=== PATIENT | male | born 2000 | race Caucasian/White ===

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

== ENCOUNTER → 2021-10-20 | Outpatient (CLI) | payer OTHER ==
[2021-10-20 18:54] LABS: African American GFR (CKD) 148.7 (60.0-200.0); BUN/Creat Ratio 14.66 Ratio (12.00-20.00); Blood Urea Nitrogen 11.8 mg/dL (9.0-27.0); Calcium 10.1 mg/dL (8.7-10.3); Carbon Dioxide 23.7 mmol/L (20.0-27.5); Chloride 104 mmol/L (96-109); Glucose 103 mg/dL (70-110); Non-African American GFR(CKD) 128.3 (60.0-200.0); Potassium 4.7 mmol/L (3.5-5.5); Sodium 139 mmol/L (135-145)
[2021-10-20 18:58] LABS: HGB 15.1 g/dL (13.0-17.0); MCH 28.7 pg (27.0-32.0); MCHC 32.8 g/dL (32.0-37.0); MCV 87.5 fL (80.0-97.0); Mean Platelet Volume 8.9 fL (9.5-12.2); Platelet Count 373 X 10*3/uL (140-440); RBC 5.26 X 10*6/uL (4.40-5.60); RDW 11.9 % (11.5-14.5); WBC 4.31 X 10*3/uL (4.50-10.00)
== END | disposition home or self-care (01) ==
LOC: LABWHC1 13:14
DX: E87.6 Hypokalemia (principal); E05.90 Thyrotoxicosis, unspecified without thyrotoxic crisis or storm
CPT/HCPCS: 36415; 80048; 84439; 84443; 85027

== ENCOUNTER → 2022-01-09 | Outpatient (CLI) | payer OTHER ==
--- NOTE | 2022-01-09 11:58 | NM ---
EXAMINATION TYPE: NM thyroid image only DATE OF EXAM: 01/09/2022 COMPARISON: NONE HISTORY: Hyperthyroidism TECHNIQUE: After the intravenous administration of 10.1 mCi Tc 99m Sodium Pertechnetate. FINDINGS: There is diminished uptake involving the lower pole of the right thyroid and lower pole of the left t hyroid. IMPRESSION: 1. Diminished uptake involving bilateral lower pole of the thyroid. Recommend correlation with ultras ound to exclude cold nodules. Otherwise, consider thyroiditis.
--- NOTE | 2022-01-09 13:09 | US ---
EXAMINATION TYPE: US thyroid st tissue head/neck DATE OF EXAM: 01/09/2022 COMPARISON: NONE CLINICAL HISTORY: E05.90 Hyperthyroidism. GLAND SIZE: Right Lobe: 5.7 x 1.8 x 2.3 cm Overall Parenchyma: heterogenous Left Lobe: 4.6 x 2.0 x 2.3 cm Overall Parenchyma: heterogeneous Isthmus Thickness: 0.6 cm NODULES RIGHT: # of nodules measured on right: 0 LEFT: # of nodules measured on left: 0 ISTHMUS: # of nodules measured in the isthmus: 0 Bilateral neck scanned, no evidence of lymphadenopathy. Gland is diffusely heterogeneous without definite nodule seen. IMPRESSION: Thyromegaly with no solid or cystic thyroid nodules seen diffuse heterogeneity can be associated with thyroiditis correlate clinically. 2017 ACR TI-RADS LEVEL: TR-RADS 1 - BENIGN: No FNA *Highest TI-RADS level nodule reported
== END | disposition home or self-care (01) ==
LOC: RADNMMAIN 10:49
PROVIDERS: ATTEND Surgery
DX: E05.90 Thyrotoxicosis, unspecified without thyrotoxic crisis or storm (principal)
CPT/HCPCS: 76536; 78013; A9512

== ENCOUNTER → 2022-02-24 | Outpatient (CLI) | payer OTHER ==
[2022-02-24 18:45] LABS: ALT 49 U/L (10-49); AST 17 U/L (14-35); African American GFR (CKD) 150.8 (60.0-200.0); Albumin 4.4 g/dL (3.8-4.9); Albumin/Globulin Ratio 1.75 (1.60-3.17); Alkaline Phosphatase 78 U/L (41-126); BUN/Creat Ratio 14.93 Ratio (12.00-20.00); Blood Urea Nitrogen 11.6 mg/dL (9.0-27.0); Calcium 9.9 mg/dL (8.7-10.3); Carbon Dioxide 23.8 mmol/L (20.0-27.5); Chloride 105 mmol/L (96-109); Globulin 2.5 g/dL (1.6-3.3); Glucose 97 mg/dL (70-110); Non-African American GFR(CKD) 130.2 (60.0-200.0); Potassium 4.6 mmol/L (3.5-5.5); Sodium 140 mmol/L (135-145)
== END | disposition home or self-care (01) ==
LOC: LABWHC1 11:35
PROVIDERS: ATTEND Internal Medicine Endocrinology, Diabetes & Metabolism
DX: E05.00 Thyrotoxicosis with diffuse goiter without thyrotoxic crisis or storm (principal)
CPT/HCPCS: 36415; 80053; 84439; 84443; 84481

== ENCOUNTER → 2022-04-30 | Outpatient (CLI) | payer OTHER ==
[2022-04-30 23:22] LABS: T4, Free (Free Thyroxine) 0.4 ng/dL (0.800-1.800)
== END | disposition home or self-care (01) ==
LOC: LABWHC1 14:24
PROVIDERS: ATTEND Internal Medicine Endocrinology, Diabetes & Metabolism
DX: E89.0 Postprocedural hypothyroidism (principal)
CPT/HCPCS: 36415; 84439; 84443

== ENCOUNTER → 2022-06-29 | Outpatient (CLI) | payer OTHER | END | disposition home or self-care (01) | LOC: LABWHC1 10:29 | PROVIDERS: ATTEND Internal Medicine Endocrinology, Diabetes & Metabolism | DX: E89.0 Postprocedural hypothyroidism (principal) | CPT/HCPCS: 36415; 84443 ==

== ENCOUNTER → 2022-08-10 | Outpatient (CLI) | payer OTHER | END | disposition home or self-care (01) | LOC: LABWHC1 14:56 | PROVIDERS: ATTEND Internal Medicine Endocrinology, Diabetes & Metabolism | DX: E89.0 Postprocedural hypothyroidism (principal) | CPT/HCPCS: 36415; 84443 ==

== ENCOUNTER → 2022-10-02 | Outpatient (CLI) | payer OTHER | END | disposition home or self-care (01) | LOC: LABWHC1 16:25 | PROVIDERS: ATTEND Internal Medicine Endocrinology, Diabetes & Metabolism | DX: E03.8 Other specified hypothyroidism (principal) | CPT/HCPCS: 36415; 84443 ==

== ENCOUNTER → 2022-12-25 | Outpatient (CLI) | payer OTHER | END | disposition home or self-care (01) | LOC: LABWHC1 13:40 | PROVIDERS: ATTEND Internal Medicine Endocrinology, Diabetes & Metabolism | DX: E03.8 Other specified hypothyroidism (principal) | CPT/HCPCS: 36415; 84443 ==

== ENCOUNTER → 2023-07-09 | Outpatient (CLI) | payer SELFPAY | END | disposition home or self-care (01) | LOC: LABWHC1 15:27 | PROVIDERS: ATTEND Internal Medicine Endocrinology, Diabetes & Metabolism | DX: E03.8 Other specified hypothyroidism (principal) | CPT/HCPCS: 36415; 84443 ==

== ENCOUNTER 2024-10-04 14:41 | Emergency (ER) | payer OTHER ==
[2024-10-04] MEDS: KETOROLAC 15 MG/ML 1 ML VIAL IVP STA (16:22)
[2024-10-04] MEDS: SODIUM CHLORIDE 0.9% 1,000 ML IV STA (16:22)
--- NOTE | 2024-10-04 16:24 | ED ---
General Adult HPI - General Chief complaint: Chest Pain Stated complaint: chest pain Time Seen by Provider: 10/04/24 15:45 Source: patient, RN notes reviewed, old records reviewed Mode of arrival: ambulatory Limitations: no limitations - History of Present Illness Initial comments: Patient is a 24-year-old male who presents emergency department after being sent from urgent care for evaluation of chest pain. Has been present for the last 3 to 4 days. Is getting over upper respiratory infection where he was coughing up sputum. Cough is improved but he still having left-sided chest discomfort. The chest discomfort is worse with some movements as well as deep inspiration as well as palpation. Patient was sent here from urgent care over concern for the benign early repolarization seen on EKG. Patient has no significant past medical history. Presents for further evaluation at this time. - Related Data Previous Rx's Medication Instructions Recorded Propranolol [Inderal] 20 mg PO QID #120 tab 10/15/21 methIMAzole [Tapazole] 20 mg PO TID 14 Days #168 tab 10/15/21 Allergies Allergy/AdvReac Type Severity Reaction Status Date / Time No Known Allergies Allergy Verified 10/04/24 14:47 Review of Systems ROS Statement: Those systems with pertinent positive or pertinent negative responses have been documented in the HPI. Review of Systems: CONST: Denies fever EYES: Denies blurry vision ENT: Endorses nasal congestion C/V: Endorses chest discomfort RESP: Denies shortness of breath GI: Denies abdominal pain : Denies dysuria SKIN: Denies rash. MSK: Denies joint pain. NEURO: Denies headache ROS Other: All systems not noted in ROS Statement are negative. Past Medical History Past Medical History: GERD/Reflux Additional Past Medical History / Comment(s): Absence Seizures. AORTIC BICUSPID VALVE History of Any Multi-Drug Resistant Organisms: None Reported Past Surgical History: No Surgical Hx Reported Additional Past Surgical History / Comment(s): EGD Past Anesthesia/Blood Transfusion Reactions: No Reported Reaction Past Psychological History: No Psychological Hx Reported Smoking Status: Never smoker Past Alcohol Use History: None Reported Past Drug Use History: None Reported - Past Family History Mother Family Medical History: No Reported History Additional Family Medical History / Comment(s): cancer, decreased General Exam - General Exam Comments Initial Comments: General: Appears anxious HEAD: Normal with no signs of head trauma. EYES: PERRLA, EOMI, conjunctiva normal, no discharge. ENT: Hearing grossly intact, normal oropharynx. RESPIRATORY: Clear breath sounds bilaterally. No wheezes, rales, or rhonchi. C/V: Regular rate and rhythm. S1 and S2 auscultated, no edema, peripheral pulses 2+ and intact throughout. Left-sided chest pain is reproducible on palpation of the left pectoral muscle. Also reproduced with passive turning of the torso to the right. ABD: Abd is soft, nontender, nondistended EXT: No obvious deformity. SKIN: No rashes or lesions observed on exposed skin. NEURO: Alert and oriented x 4. Limitations: no limitations Course Vital Signs 10/04/24 10/04/24 10/04/24 14:42 15:47 16:00 Temperature 98.4 F Pulse Rate 134 H 86 110 H Respiratory 18 20 16 Rate Blood Pressure 105/63 130/86 117/77 O2 Sat by Pulse 100 98 Oximetry 10/04/24 17:32 Temperature 98.6 F Pulse Rate 108 H Respiratory 18 Rate Blood Pressure 108/71 O2 Sat by Pulse Oximetry Medical Decision Making - Medical Decision Making Was pt. sent in by a medical professional or institution (, PA, TRANSPORTATION PROJECT MANAGER, urgent care, hospital, or group home...) When possible be specific @ -Sent from urgent care for evaluation for fast heart rate, benign early repolarization on EKG. Did you speak to anyone other than the patient for history (EMS, parent, family, police, friend...)? What history was obtained from this source @ -No Did you review nursing and triage notes (agree or disagree)? Why? @ -I reviewed and agree with nursing and triage notes Were old charts reviewed (outside hosp., previous admission, EMS record, old EKG, old radiological studies, urgent care reports/EKG's, group home records)? Report findings @ -No old charts were reviewed Differential Diagnosis (chest pain, altered mental status, abdominal pain women, abdominal pain men, vaginal bleeding, weakness, fever, dyspnea, syncope, headache, dizziness, GI bleed, back pain, seizure, CVA, palpatations, mental health, musculoskeletal)? @ -Differential Chest Pain: Stable Angina, Unstable Angina, STEMI, NSTEMI Aortic Dissection, Pneumothorax, Musculoskeletal, Esophageal Spasm GERD, Cholecystitis, Pancreatitis, Zoster, this is not meant to be an all-inclusive list. EKG interpreted by me (3pts min.). @ -As above X-rays interpreted by me (1pt min.). @ -Chest x-ray reveals no obvious acute cardiopulmonary process. CT interpreted by me (1pt min.). @ -None done U/S interpreted by me (1pt. min.). @ -None done What testing was considered but not performed or refused? (CT, X-rays, U/S, labs)? Why? @ -None What meds were considered but not given or refused? Why? @ -None Did you discuss the management of the patient with other professionals (professionals i.e. DrEtienne, PA, TRANSPORTATION PROJECT MANAGER, lab, RT, psych nurse, social worker clinical, plate worker, teacher, structural engineering drafting officer, egg caser)? Give summary @ -No Was smoking cessation discussed for >3mins.? @ -No Was critical care preformed (if so, how long)? @ -No Were there social determinants of health that impacted care today? How? (Homelessness, low income, unemployed, alcoholism, drug addiction, transporta tion, low edu. Level, literacy, decrease access to med. care, senior living, rehab)? @ -No Was there de-escalation of care discussed even if they declined (Discuss DNR or withdrawal of care, Hospice)? DNR status @ -No What co-morbidities impacted this encounter? (DM, HTN, Smoking, COPD, CAD, Cancer, CVA, ARF, Chemo, Hep., AIDS, mental health diagnosis, sleep apnea, morbid obesity)? @ -None Was patient admitted / discharged? Hospital course, mention meds given and route, prescriptions, significant lab abnormalities, going to OR and other pertinent info. @ -Patient presents emergency department with tachycardia, URI symptoms. Does seem to be chest wall pain secondary to coughing as he is recovering from upper respiratory infection however we will obtain cardiopulmonary labs. Patient was in agreement this plan. Signs remarkable for tachycardia. Patient does appear anxious. Patient was in agreement this plan. He will be administered IV Toradol, IV fluids. EKG shows benign early repolarization but no other obvious acute process. Repeat EKG redemonstrates this. Patient does have sinus tachycardia. Chest pain reveals no obvious acute cardiopulmonary process. Laboratory studies including D-dimer all within acceptable limits. Troponin undetectable. Patient does have COVID. I discussed results with patient. Patient was given IV fluids for his mild dehydration as evident by slightly elevated creatinine. Discussed that it seems like he has chest wall pain recommended monitoring at home and follow-up with his PCP. He was in agreement this plan. Strict return precautions discussed. I instructed the patient to follow up with their PCP in the next 1-3 days. I explained that the patient should return to the emergency department if they experience any worsening symptoms. Strict return precautions were discussed with the patient. The patient expressed understanding of these instructions. I answered all questions that the patient had. The patient was discharged home in good condition with their prescriptions and follow up information. Undiagnosed new problem with uncertain prognosis? @ -No Drug Therapy requiring intensive monitoring for toxicity (Heparin, Nitro, Ins ulin, Cardizem)? @ -No Were any procedures done? @ -No Diagnosis/symptom? @ -COVID-19 infection, chest wall pain Acute, or Chronic, or Acute on Chronic? @ -Acute Uncomplicated (without systemic symptoms) or Complicated (systemic symptoms)? @ -Uncomplicated Side effects of treatment? @ -None Exacerbation, Progression, or Severe Exacerbation] @ -No Poses a threat to life or bodily function? @ -Unlikely at this time - Lab Data Result diagrams: 10/04/24 16:13 10/04/24 16:13 Lab Results 10/04/24 10/04/24 10/04/24 Range/Units 16:13 16:13 16:13 WBC 6.8 (3.8-10.6) k/uL RBC 4.12 L (4.30-5.90) m/uL Hgb 13.0 (13.0-17.5) gm/dL Hct 39.6 (39.0-53.0) % MCV 96.2 (80.0-100.0) fL MCH 31.6 (25.0-35.0) pg MCHC 32.8 (31.0-37.0) g/dL RDW 14.2 (11.5-15.5) % Plt Count 280 (150-450) k/uL MPV 6.8 Neutrophils % 75 % Lymphocytes % 18 % Monocytes % 5 % Eosinophils % 1 % Basophils % 1 % Neutrophils # 5.0 (1.3-7.7) k/uL Lymphocytes # 1.2 (1.0-4.8) k/uL Monocytes # 0.3 (0-1.0) k/uL Eosinophils # 0.0 (0-0.7) k/uL Basophils # 0.0 (0-0.2) k/uL PT 11.1 (10.0-12.5) sec INR 1.0 (<1.2) APTT 25.2 (22.0-30.0) sec D-Dimer 0.21 (<0.60) mg/L FEU Sodium 139 (137-145) mmol/L Potassium 4.8 (3.5-5.1) mmol/L Chloride 107 (98-107) mmol/L Carbon Dioxide 23 (22-30) mmol/L Anion Gap 9 mmol/L BUN 21 H (9-20) mg/dL Creatinine 1.36 H (0.66-1.25) mg/dL Est GFR (CKD-EPI)AfAm 84 (>60 ml/min/1.73 sqM) Est GFR (CKD-EPI)NonAf 73 (>60 ml/min/1.73 sqM) Glucose 111 H (74-99) mg/dL Calcium 9.4 (8.4-10.2) mg/dL Magnesium 2.3 (1.6-2.3) mg/dL Total Bilirubin 0.7 (0.2-1.3) mg/dL AST 51 (17-59) U/L ALT 42 (4-49) U/L Alkaline Phosphatase 25 L (38-126) U/L Troponin I (0.000-0.034) ng/mL Total Protein 7.5 (6.3-8.2) g/dL Albumin 4.7 (3.5-5.0) g/dL Influenza Type A (PCR) (Not Detectd) Influenza Type B (PCR) (Not Detectd) RSV (PCR) (Not Detectd) SARS-CoV-2 (PCR) (Not Detectd) 10/04/24 10/04/24 Range/Units 16:13 16:13 WBC (3.8-10.6) k/uL RBC (4.30-5.90) m/uL Hgb (13.0-17.5) gm/dL Hct (39.0-53.0) % MCV (80.0-100.0) fL MCH (25.0-35.0) pg MCHC (31.0-37.0) g/dL RDW (11.5-15.5) % Plt Count (150-450) k/uL MPV Neutrophils % % Lymphocytes % % Monocytes % % Eosinophils % % Basophils % % Neutrophils # (1.3-7.7) k/uL Lymphocytes # (1.0-4.8) k/uL Monocytes # (0-1.0) k/uL Eosinophils # (0-0.7) k/uL Basophils # (0-0.2) k/uL PT (10.0-12.5) sec INR (<1.2) APTT (22.0-30.0) sec D-Dimer (<0.60) mg/L FEU Sodium (137-145) mmol/L Potassium (3.5-5.1) mmol/L Chloride (98-107) mmol/L Carbon Dioxide (22-30) mmol/L Anion Gap mmol/L BUN (9-20) mg/dL Creatinine (0.66-1.25) mg/dL Est GFR (CKD-EPI)AfAm (>60 ml/min/1.73 sqM) Est GFR (CKD-EPI)NonAf (>60 ml/min/1.73 sqM) Glucose (74-99) mg/dL Calcium (8.4-10.2) mg/dL Magnesium (1.6-2.3) mg/dL Total Bilirubin (0.2-1.3) mg/dL AST (17-59) U/L ALT (4-49) U/L Alkaline Phosphatase (38-126) U/L Troponin I <0.012 (0.000-0.034) ng/mL Total Protein (6.3-8.2) g/dL Albumin (3.5-5.0) g/dL Influenza Type A (PCR) Not Detected (Not Detectd) Influenza Type B (PCR) Not Detected (Not Detectd) RSV (PCR) Not Detected (Not Detectd) SARS-CoV-2 (PCR) Detected A (Not Detectd) - EKG Data -: EKG Interpreted by Me EKG Comments: 12-lead Electrocardiogram Interpretation Note EKG was reviewed and interpreted by myself. 12-lead ECG performed at 1450 is interpreted by me as revealing sinus tachycardia at a rate of 118 beats per minute. [place] is normal. MN interval is 116 ms, QRS durations 102 ms, QTc is 421 ms.. There were no ST or T wave abnormalities to suggest myocardial ischemia or injury. R wave progression across the precordium was delayed. By my interpretation this EKG is non-diagnostic for acute ischemia. Patient does have benign early repolarization present in the precordial leads. 12-lead Electrocardiogram Interpretation Note EKG was reviewed and interpreted by myself. 12-lead ECG performed at 1616 is interpreted by me as revealing sinus tachycardia at a rate of 114 beats per minute. [place] is normal. MN interval is 161 ms, QRS duration is 98 ms, QTc is 417 ms.. There were no ST or T wave abnormalities to suggest myocardial ischemia or injury. R wave progression across the precordium was delayed. By my interpretation this EKG is non-diagnostic for acute ischemia. Benign early repolarization is present still. Unchanged from previous EKG. Disposition Clinical Impression: COVID-19 virus infection, Chest wall pain Disposition: HOME SELF-CARE Condition: Good Instructions (If sedation given, give patient instructions): Chest Wall Pain (ED), COVID-19 (Coronavirus Disease 2019) (ED) Additional Instructions: Follow-up with your PCP in the next 1 to 3 days. Return to the emergency department if any worsening symptoms. He tested positive for COVID-19. Also have chest wall pain. Workup today in the emergency department unremarkable except for the COVID-19 positive test. Continue to monitor symptoms and return to the ER if any worsening symptoms. Is patient prescribed a controlled substance at d/c from ED?: No Referrals: None,Stated [Primary Care Provider] - 1-2 days Forms: Area PCPs Time of Disposition: 17:20
[2024-10-04 16:34] LABS: Basophils % (A) 1 %; Eosinophils % (A) 1 %; HCT 39.6 % (39.0-53.0); Lymphocytes # (A) 1.2 k/uL (1.0-4.8); Lymphocytes % (A) 18 %; MCH 31.6 pg (25.0-35.0); MCHC 32.8 g/dL (31.0-37.0); MCV 96.2 fL (80.0-100.0); Mean Platelet Volume 6.8; Monocytes # (A) 0.3 k/uL (0-1.0); Monocytes % (A) 5 %; Neutrophils % (A) 75 %; Platelet Count 280 k/uL (150-450); RBC 4.12 m/uL (4.30-5.90); RDW 14.2 % (11.5-15.5); WBC 6.8 k/uL (3.8-10.6)
[2024-10-04 16:41] LABS: ALT 42 U/L (4-49); AST 51 U/L (17-59); African American GFR (CKD) 84 (>60 ml/min/1.73 sqM); Albumin 4.7 g/dL (3.5-5.0); Alkaline Phosphatase 25 U/L (38-126); Anion Gap 9 mmol/L; Blood Urea Nitrogen 21 mg/dL (9-20); Calcium 9.4 mg/dL (8.4-10.2); Carbon Dioxide 23 mmol/L (22-30); Chloride 107 mmol/L (98-107); Glucose 111 mg/dL (74-99); Magnesium 2.3 mg/dL (1.6-2.3); Non-African American GFR(CKD) 73 (>60 ml/min/1.73 sqM); Potassium 4.8 mmol/L (3.5-5.1); Sodium 139 mmol/L (137-145); Total Bilirubin 0.7 mg/dL (0.2-1.3); Total Protein 7.5 g/dL (6.3-8.2)
--- NOTE | 2024-10-04 16:41 | XR ---
EXAMINATION TYPE: XR chest 2V DATE OF EXAM: 10/04/2024 4:32 PM COMPARISON: 10/12/2021 CLINICAL INDICATION: Male, 24 years old with history of Chest Pain; [facility] TECHNIQUE: XR chest 2V Frontal and lateral views of the chest. FINDINGS: Lungs/Pleura: There is no evidence of pleural effusion, focal consolidation, or pneumothorax. Pulmonary vascularity: Unremarkable. Heart/mediastinum: Cardiomediastinal silhouette is prominent in size. Musculoskeletal: No acute osseous pathology. Other findings: None Lines/Tubes: IMPRESSION: No acute cardiopulmonary disease/process. [facility] Rosario, , 10/04/2024 4:39 PM
[2024-10-04 16:48] LABS: Partial Thromboplastin Time 25.2 sec (22.0-30.0); Prothrombin Time 11.1 sec (10.0-12.5)
[2024-10-04 17:09] LABS: Influenza A Not Detected (Not Detectd); Influenza B Not Detected (Not Detectd); RSV Not Detected (Not Detectd)
[2024-10-04 17:34] VITALS: BP 108/71; PULSE 108; RESP 18; TEMP 98.6
== END 2024-10-04 17:32 | disposition home or self-care (01) ==
LOC: EC 14:41
DX: U07.1 COVID-19 (principal)
CPT/HCPCS: 99285; 96374; 96361; 93005; 85379; 80053; 83735; 84484; 85025; 85610; 85730; 87636; 71046; J1885

== ENCOUNTER → 2024-12-20 | Outpatient (CLI) | payer OTHER ==
[2024-12-20 18:12] LABS: Basophils # (A) 0.05 X 10*3/uL (0.00-0.10); Basophils % (A) 1.3 %; Eosinophils # (A) 0.12 X 10*3/uL (0.04-0.35); Eosinophils % (A) 3.1 %; HCT 43.1 % (39.6-50.0); HGB 13.7 g/dL (13.0-17.0); Immature Grans, Automated 0 %; Lymphocytes # (A) 1.38 X 10*3/uL (0.90-5.00); Lymphocytes % (A) 35.6 %; MCH 30.2 pg (27.0-32.0); MCHC 31.8 g/dL (32.0-37.0); MCV 95.1 FL (80.0-97.0); Mean Platelet Volume 10.5 FL (9.5-12.2); Monocytes # (A) 0.17 X 10*3/uL (0.20-1.00); Monocytes % (A) 4.4 %; NRBC Per 100 WBC 0 X 10*3/uL (0.00-0.01); Neutrophils # (A) 2.16 X 10*3/uL (1.80-7.70); Neutrophils % (A) 55.6 %; Platelet Count 223 X 10*3/uL (140-440); RBC 4.53 X 10*6/uL (4.40-5.60); RDW 14.4 % (11.5-14.5); WBC 3.88 X 10*3/uL (4.50-10.00)
[2024-12-20 18:42] LABS: Hepatitis B Core IgM Nonreactive (Nonreactive); Hepatitis B Surface Antigen Nonreactive (Nonreactive); Hepatitis C IgG Antibody Nonreactive (Nonreactive); Thyroid Peroxidase Antibodies 24.9 U/mL (0.0-33.0)
[2024-12-20 18:53] LABS: % Iron Saturation 9.68 (15.00-50.00); Chloride 109 mmol/L (96-109); Chol/HDL Ratio 3.82 Ratio; Creatine Kinase 78 U/L (35-257); Glucose 103 mg/dL (70-110); Iron 46 UG/DL (65-175); LDL Cholesterol,Calculated 90.4 mg/dL (0.0-131.0); Potassium 4.2 mmol/L (3.5-5.5); Rheumatoid Factor, Qnt <15 IU/mL (0-15); Sodium 143 mmol/L (135-145); Total Iron Binding Capacity 475 UG/DL (228-460); VLDL Calculation 14.36 mg/dL (5.00-40.00)
[2024-12-20 18:54] LABS: ALT 33 U/L (10-49); AST 21 U/L (14-35); Albumin 4.3 g/dL (3.8-4.9); Albumin/Globulin Ratio 1.95 Ratio (1.60-3.17); Alkaline Phosphatase 46 U/L (41-126); Calcium 9.3 mg/dL (8.7-10.3); Ferritin 38.6 ng/mL (22.0-322.0); Globulin 2.2 g/dL (1.6-3.3); Total Protein 6.5 g/dL (6.2-8.2)
[2024-12-20 19:02] LABS: Ceruloplasmin 30.9 mg/dL (20.0-60.0)
[2024-12-20 19:20] LABS: Erythrocyte Sedimentation Rate 4 mm/Hr (0-15)
[2024-12-20 22:26] LABS: Cyclic Citrull Pep IgG Unit <1.5 U/mL (<=3.9); Cyclic Citrullinated Pep IgG Negative
[2024-12-21 12:20] LABS: Liver/Kidney Microsome Antibod 1.8 UNITS (<=20)
== END | disposition home or self-care (01) ==
LOC: LABWHC1 12:50
PROVIDERS: ATTEND Internal Medicine
DX: E03.9 Hypothyroidism, unspecified (principal); N17.9 Acute kidney failure, unspecified; U07.1 COVID-19; R79.89 Other specified abnormal findings of blood chemistry
CPT/HCPCS: 36415; 80053; 80061; 80074; 82105; 82306; 82390; 82550; 82607; 82728; 82746; 83036; 83516; 83540; 83550; 84439; 84443; 84481; 84482; 85025; 85652; 86038; 86200; 86376; 86431; 86800

== ENCOUNTER 2025-01-02 14:26 | Emergency (ER) | payer OTHER ==
--- NOTE | 2025-01-02 15:11 | ED ---
Abdominal Pain HPI - General Source: patient, RN notes reviewed Mode of arrival: ambulatory Limitations: no limitations - History of Present Illness MD Complaint: abdominal pain, flank pain Onset/Timin -: days(s) Location: diffuse Radiation: L flank, R flank Migration to: no migration Severity scale (1-10): 3 Quality: other (Pressure) Consistency: constant Associated Symptoms: vomiting, diarrhea, chills <Porter Le - Last Filed: 01/02/25 19:37> <Merline Gupta - Last Filed: 01/03/25 12:54> - General Chief Complaint: Abdominal Pain Stated Complaint: Abd Pain/Vomitting Time Seen by Provider: 01/02/25 14:43 - History of Present Illness Initial Comments: This is a 24-year-old male with history of of thyroidectomy and STACY presenting f or dental pain (11/27) x 2 weeks. Patient describes pain as pressure that has become constant over the past week with associated vomiting and some diarrhea. Endorses associated back pressure in morning that resolves during the day. Also endorses chills and appearing pale for the past several months. Denies [id number] medication use. Patient states he had a CT scan scheduled for this afternoon but came to the ER instead since he was unable to handle the abdominal pressure any longer. Denies fever, chest pain, dyspnea, hematemesis, constipation, hematochezia, melena, urinary symptoms, hematuria. (Porter eL) - Related Data Home Medications Medication Instructions Recorded Confirmed Levothyroxine Sodium [Synthroid] 150 mcg PO AC-BRKFST 01/02/25 01/02/25 Allergies Allergy/AdvReac Type Severity Reaction Status Date / Time No Known Allergies Allergy Verified 01/02/25 17:42 Review of Systems ROS Other: All systems not noted in ROS Statement are negative. <Porter Le - Last Filed: 01/02/25 19:37> ROS Other: All systems not noted in ROS Statement are negative. <Merline Gupta - Last Filed: 01/03/25 12:54> ROS Statement: Those systems with pertinent positive or pertinent negative responses have been documented in the HPI. Past Medical History Past Medical History: GERD/Reflux Additional Past Medical History / Comment(s): Absence Seizures. AORTIC BICUSPID VALVE History of Any Multi-Drug Resistant Organisms: None Reported Past Surgical History: No Surgical Hx Reported Additional Past Surgical History / Comment(s): EGD Past Anesthesia/Blood Transfusion Reactions: No Reported Reaction Past Psychological History: No Psychological Hx Reported Smoking Status: Never smoker Past Alcohol Use History: None Reported Past Drug Use History: None Reported - Past Family History Mother Family Medical History: No Reported History Additional Family Medical History / Comment(s): cancer, decreased <Porter Le - Last Filed: 01/02/25 19:37> General Exam Limitations: no limitations General appearance: alert, in no apparent distress, other (Patient appears pale/ill) Head exam: Present: atraumatic, normocephalic, normal inspection Eye exam: Present: normal appearance, PERRL, EOMI. Absent: scleral icterus, conjunctival injection, periorbital swelling ENT exam: Present: normal exam, mucous membranes moist Neck exam: Present: normal inspection. Absent: tenderness, meningismus, lymphadenopathy Respiratory exam: Present: normal lung sounds bilaterally. Absent: respiratory distress, wheezes, rales, rhonchi, stridor, accessory muscle use, decreased breath sounds, prolonged expiratory Cardiovascular Exam: Present: regular rate, normal rhythm, normal heart sounds. Absent: systolic murmur, diastolic murmur, rubs, gallop, clicks GI/Abdominal exam: Present: soft, tenderness (Positive diffuse tenderness and tympanic tenderness, especially in bilateral flanks), guarding (Voluntary guarding throughout), normal bowel sounds. Absent: distended, rebound, rigid, mass Extremities exam: Present: normal inspection, full ROM, normal capillary refill. Absent: tenderness, pedal edema, joint swelling, calf tenderness Back exam: Present: normal inspection. Absent: CVA tenderness (R), CVA tenderness (L) Neurological exam: Present: alert, oriented X3, CN II-XII intact Psychiatric exam: Present: normal affect, normal mood Skin exam: Present: warm, dry, intact, pallor. Absent: rash <ReyPorter - Last Filed: 01/02/25 19:37> Course Vital Signs 01/02/25 01/02/25 01/02/25 14:30 17:44 18:22 Temperature 97.3 F L Pulse Rate 65 102 H 112 H Respiratory 22 16 18 Rate Blood Pressure 102/73 112/78 119/87 O2 Sat by Pulse 98 100 100 Oximetry 01/02/25 01/02/25 18:38 22:13 Temperature 98.4 F Pulse Rate 97 91 Respiratory 16 18 Rate Blood Pressure 119/85 121/91 O2 Sat by Pulse 98 98 Oximetry Medical Decision Making - Lab Data Result diagrams: 01/02/25 15:32 01/02/25 15:32 <Porter Le - Last Filed: 01/02/25 19:37> - Lab Data Result diagrams: 01/02/25 15:32 01/02/25 15:32 <Merline Gupta - Last Filed: 01/03/25 12:54> - Medical Decision Making Was pt. sent in by a medical professional or institution (, PA, DEPUTY JUVENILE OFFICER, urgent care, hospital, or care home...) When possible be specific @ -[No] Did you speak to anyone other than the patient for history (EMS, parent, family, police, friend...)? What history was obtained from this source @ -[No] Did you review nursing and triage notes (agree or disagree)? Why? @ -[I reviewed and agree with nursing and triage notes] Were old charts reviewed (outside hosp., previous admission, EMS record, old EKG, old radiological studies, urgent care reports/EKG's, care home records)? Report findings @ -[No old charts were reviewed] Differential Diagnosis (chest pain, altered mental status, abdominal pain women, abdominal pain men, vaginal bleeding, weakness, fever, dyspnea, syncope, headache, dizziness, GI bleed, back pain, seizure, CVA, palpatations, mental health, musculoskeletal)? @ -Differential Abdominal Pain Men: Appendicitis, cholecystitis, diverticulosis, ischemic bowel, pancreatitis, hepatitis, UTI, gastroenteritis, AAA, incarcerated hernia, bowel obstruction, constipation, inflammatory bowel, hepatitis, peptic ulcer disease, splenic infarction, perforated viscus, testicular torsion, this is not meant to be an all-inclusive list EKG interpreted by me (3pts min.). @ -Sinus tachycardia without ST deviation or T wave inversion. Ventricular rate 104 bpm, BLANCA 185 ms, QRS 97 ms, QTc 431 ms. X-rays interpreted by me (1pt min.). @ -[None done] CT interpreted by me (1pt min.). @ -Abdomen/pelvic CT shows hepatic periportal edema and nonopacification of hepatic veins along with diffuse abdominal ascites with radiologist suggesting suspicions for Budd-Chiari syndrome. Cardiomegaly, small bilateral pleural eff usions as well as small/moderate pericardial effusion noted. U/S interpreted by me (1pt. min.). @ -[None done] What testing was considered but not performed or refused? (CT, X-rays, U/S, l abs)? Why? @ -[None] What meds were considered but not given or refused? Why? @ -[None] Did you discuss the management of the patient with other professionals (professionals i.e. , PA, DEPUTY JUVENILE OFFICER, lab, RT, psych nurse, director social welfare, city magistrate, teacher, hospital security officer, keycase assembler)? Give summary @ -Spoke to Dr. Julio from [facility] who advised patient be transported to [facility] for definitive care. Was smoking cessation discussed for >3mins.? @ -[No] Was critical care preformed (if so, how long)? @ -[No] Were there social determinants of health that impacted care today? How? (Homelessness, low income, unemployed, alcoholism, drug addiction, transportation, low edu. Level, literacy, decrease access to med. care, group home, rehab)? @ -[No] Was there de-escalation of care discussed even if they declined (Discuss DNR or withdrawal of care, Hospice)? DNR status @ -[No] What co-morbidities impacted this encounter? (DM, HTN, Smoking, COPD, CAD, Cancer, CVA, ARF, Chemo, Hep., AIDS, mental health diagnosis, sleep apnea, morbid obesity)? @ -[None] Was patient admitted / discharged? Hospital course, mention meds given and route, prescriptions, significant lab abnormalities, going to OR and other pertinent info. @ -Lab work including lactic acid and lipase largely unremarkable. UA and Cepheid test negative. Abdomen/pelvic CT shows hepatic periportal edema and nonopacification of hepatic veins along with diffuse abdominal ascites with radiologist suggesting suspicions for Budd-Chiari syndrome. Cardiomegaly, small bilateral pleural effusions as well as small/moderate pericardial effusion noted. Patient initially provided IV normal saline, Pepcid, Protonix and p.o. Tylenol with minimal relief of pain. Then provided IV Toradol and Dilaudid for ongoing pain management. Discussed patient with Dr. Gupta who advised ER to ER transport to [facility] due to gastroenterology unavailability at [facility] at this time.. Spoke to Dr. Julio who recommended [facility]. Discussed this with Dr. Gupta who advised [facility] due to normally extended wait for [facility]. Undiagnosed new problem with uncertain prognosis? @ -[No] Drug Therapy requiring intensive monitoring for toxicity (Heparin, Nitro, Insulin, Cardizem)? @ -[No] Were any procedures done? @ -[No] Diagnosis/symptom? @ -Budd-Chiari syndrome, ascites, pleural/pericardial effusion Acute, or Chronic, or Acute on Chronic? @ -Acute Uncomplicated (without systemic symptoms) or Complicated (systemic symptoms)? @ -Complicated Side effects of treatment? @ -[No] Exacerbation, Progression, or Severe Exacerbation? @ -[No] Poses a threat to life or bodily function? How? (Chest pain, USA, OR, pneumonia, PE, COPD, DKA, ARF, appy, cholecystitis, CVA, Diverticulitis, Homicidal, Suicidal, threat to staff... and all critical care pts) @ -Pericardial effusion, cardiac arrest (Porter Le) Patient was signed out to myself pending transfer. Of note, as noted above, [facility] physician recommended transfer to [facility] however since the majority of our patients that are transferred there board in our ER awaiting bed availability for days at a time., I recommended transfer to one of the locations as above, as I did not feel it would be safe or in the patient's best interest to board in our ED for that period of time, awaiting definitive care. On my assessment patient is resting comfortably no acute distress. He does have generalized pallor. Abdomen is distended. Lungs are clear to auscultation bilaterally. Heart rates been 90-101 bpm. Blood pressure is stable. Discussed with him plan for impending transfer. He is agreeable plan of care. Case was discussed with Dr. Arriaga, [facility] who kindly accepted the patient for transfer. Did recommend and request CT PE study prior to transfer. This was added. Troponin undetectable, BNP~15,000. CT showed no evidence of PE, radiologist read as no evidence of PE, significant cardiomegaly and small to moderate pericardial effusion, consider echo, small right and trace left pleural effusions with possible adjacent lower lobe compressive atelectasis/and/or/developing infectious etiology. I personally reviewed CTA and agree with radiologist interpretation. Patient was transferred to [facility] in stable condition. EKG interpretation: Sinus tachycardia rate 104 bpm intervals within acceptable limits, no clear ST elevations or depressions, somewhat low voltage EKG, no arrythmias (Merline Gupta) - Lab Data Lab Results 01/02/25 01/02/25 01/02/25 Range/Units 15:03 15:06 15:32 WBC 3.87 L (4.50-10.00) 10*3/uL RBC 4.35 L (4.40-5.60) 10*6/uL Hgb 13.4 (13.0-17.0) g/dL Hct 39.2 L (39.6-50.0) % MCV 90.1 (80.0-97.0) fL MCH 30.8 (27.0-32.0) pg MCHC 34.2 (32.0-37.0) g/dL Plt Count 193 (140-440) 10*3/uL MPV 9.7 (9.5-12.2) fL Immature Gran % (Auto) 0.3 % Neutrophils % 60.9 % Lymphocytes % 32.0 % Monocytes % 3.9 % Eosinophils % 1.3 % Basophils % 1.6 % Immature Gran # 0.01 (0.00-0.04) 10*3/uL Neutrophils # 2.36 (1.80-7.70) 10*3/uL Lymphocytes # 1.24 (0.90-5.00) 10*3/uL Monocytes # 0.15 L (0.20-1.00) 10*3/uL Eosinophils # 0.05 (0.04-0.35) 10*3/uL Basophils # 0.06 (0.00-0.10) 10*3/uL PT (10.0-12.5) sec INR (<1.2) APTT (22.0-30.0) sec D-Dimer (<0.60) mg/L FEU Sodium (137-145) mmol/L Potassium (3.5-5.1) mmol/L Chloride (98-107) mmol/L Carbon Dioxide (22-30) mmol/L Anion Gap mmol/L BUN (9-20) mg/dL Creatinine (0.66-1.25) mg/dL Est GFR (CKD-EPI)AfAm (>60 ml/min/1.73 sqM) Est GFR (CKD-EPI)NonAf (>60 ml/min/1.73 sqM) Glucose (74-99) mg/dL Plasma Lactic Acid Jean-Pierre (0.7-2.0) mmol/L Calcium (8.4-10.2) mg/dL Total Bilirubin (0.2-1.3) mg/dL AST (17-59) U/L ALT (4-49) U/L Alkaline Phosphatase (38-126) U/L Troponin I (0.000-0.034) ng/mL NT-Pro-B Natriuret Pep pg/mL Total Protein (6.3-8.2) g/dL Albumin (3.5-5.0) g/dL Lipase (23-300) U/L Urine Color Yellow Urine Appearance Clear (Clear) Urine pH 5.5 (5.0-8.0) Ur Specific Orient 1.022 (1.001-1.035) Urine Protein Negative (Negative) Urine Glucose (UA) Negative (Negative) Urine Ketones Negative (Negative) Urine Blood Negative (Negative) Urine Nitrite Negative (Negative) Urine Bilirubin Negative (Negative) Urine Urobilinogen <2.0 (<2.0) mg/dL Ur Leukocyte Esterase Negative (Negative) Influenza Type A (PCR) Not Detected (Not Detectd) Influenza Type B (PCR) Not Detected (Not Detectd) RSV (PCR) Not Detected (Not Detectd) SARS-CoV-2 (PCR) Not Detected (Not Detectd) 01/02/25 01/02/25 01/02/25 Range/Units 15:32 15:32 19:41 WBC (4.50-10.00) 10*3/uL RBC (4.40-5.60) 10*6/uL Hgb (13.0-17.0) g/dL Hct (39.6-50.0) % MCV (80.0-97.0) fL MCH (27.0-32.0) pg MCHC (32.0-37.0) g/dL Plt Count (140-440) 10*3/uL MPV (9.5-12.2) fL Immature Gran % (Auto) % Neutrophils % % Lymphocytes % % Monocytes % % Eosinophils % % Basophils % % Immature Gran # (0.00-0.04) 10*3/uL Neutrophils # (1.80-7.70) 10*3/uL Lymphocytes # (0.90-5.00) 10*3/uL Monocytes # (0.20-1.00) 10*3/uL Eosinophils # (0.04-0.35) 10*3/uL Basophils # (0.00-0.10) 10*3/uL PT 13.9 H (10.0-12.5) sec INR 1.3 H (<1.2) APTT 23.3 (22.0-30.0) sec D-Dimer 3.95 H (<0.60) mg/L FEU Sodium 137 (137-145) mmol/L Potassium 4.2 (3.5-5.1) mmol/L Chloride 108 H (98-107) mmol/L Carbon Dioxide 17 L (22-30) mmol/L Anion Gap 12 mmol/L BUN 11 (9-20) mg/dL Creatinine 1.20 (0.66-1.25) mg/dL Est GFR (CKD-EPI)AfAm >90 (>60 ml/min/1.73 sqM) Est GFR (CKD-EPI)NonAf 85 (>60 ml/min/1.73 sqM) Glucose 105 H (74-99) mg/dL Plasma Lactic Acid Jean-Pierre 1.8 (0.7-2.0) mmol/L Calcium 9.6 (8.4-10.2) mg/dL Total Bilirubin 1.2 (0.2-1.3) mg/dL AST 18 (17-59) U/L ALT 17 (4-49) U/L Alkaline Phosphatase 37 L (38-126) U/L Troponin I (0.000-0.034) ng/mL NT-Pro-B Natriuret Pep pg/mL Total Protein 6.1 L (6.3-8.2) g/dL Albumin 3.6 (3.5-5.0) g/dL Lipase 108 (23-300) U/L Urine Color Urine Appearance (Clear) Urine pH (5.0-8.0) Ur Specific Orient (1.001-1.035) Urine Protein (Negative) Urine Glucose (UA) (Negative) Urine Ketones (Negative) Urine Blood (Negative) Urine Nitrite (Negative) Urine Bilirubin (Negative) Urine Urobilinogen (<2.0) mg/dL Ur Leukocyte Esterase (Negative) Influenza Type A (PCR) (Not Detectd) Influenza Type B (PCR) (Not Detectd) RSV (PCR) (Not Detectd) SARS-CoV-2 (PCR) (Not Detectd) 01/02/25 01/02/25 Range/Units 19:41 19:41 WBC (4.50-10.00) 10*3/uL RBC (4.40-5.60) 10*6/uL Hgb (13.0-17.0) g/dL Hct (39.6-50.0) % MCV (80.0-97.0) fL MCH (27.0-32.0) pg MCHC (32.0-37.0) g/dL Plt Count (140-440) 10*3/uL MPV (9.5-12.2) fL Immature Gran % (Auto) % Neutrophils % % Lymphocytes % % Monocytes % % Eosinophils % % Basophils % % Immature Gran # (0.00-0.04) 10*3/uL Neutrophils # (1.80-7.70) 10*3/uL Lymphocytes # (0.90-5.00) 10*3/uL Monocytes # (0.20-1.00) 10*3/uL Eosinophils # (0.04-0.35) 10*3/uL Basophils # (0.00-0.10) 10*3/uL PT (10.0-12.5) sec INR (<1.2) APTT (22.0-30.0) sec D-Dimer (<0.60) mg/L FEU Sodium (137-145) mmol/L Potassium (3.5-5.1) mmol/L Chloride (98-107) mmol/L Carbon Dioxide (22-30) mmol/L Anion Gap mmol/L BUN (9-20) mg/dL Creatinine (0.66-1.25) mg/dL Est GFR (CKD-EPI)AfAm (>60 ml/min/1.73 sqM) Est GFR (CKD-EPI)NonAf (>60 ml/min/1.73 sqM) Glucose (74-99) mg/dL Plasma Lactic Acid Jean-Pierre (0.7-2.0) mmol/L Calcium (8.4-10.2) mg/dL Total Bilirubin (0.2-1.3) mg/dL AST (17-59) U/L ALT (4-49) U/L Alkaline Phosphatase (38-126) U/L Troponin I <0.012 (0.000-0.034) ng/mL NT-Pro-B Natriuret Pep 37701 pg/mL Total Protein (6.3-8.2) g/dL Albumin (3.5-5.0) g/dL Lipase (23-300) U/L Urine Color Urine Appearance (Clear) Urine pH (5.0-8.0) Ur Specific Orient (1.001-1.035) Urine Protein (Negative) Urine Glucose (UA) (Negative) Urine Ketones (Negative) Urine Blood (Negative) Urine Nitrite (Negative) Urine Bilirubin (Negative) Urine Urobilinogen (<2.0) mg/dL Ur Leukocyte Esterase (Negative) Influenza Type A (PCR) (Not Detectd) Influenza Type B (PCR) (Not Detectd) RSV (PCR) (Not Detectd) SARS-CoV-2 (PCR) (Not Detectd) Disposition Is patient prescribed a controlled substance at d/c from ED?: No Time of Disposition: 18:30 - Out of Hospital Transfer - Req. Specs Out of Hospital Transfer - Requested Specifics: Other Emergency Center <Porter Le - Last Filed: 01/02/25 19:37> <Merline Gupta - Last Filed: 01/03/25 12:54> Clinical Impression: Budd-Chiari syndrome, Ascites, Pleural effusion, Pericardial effusion Disposition: OTHER INSTITUTION NOT DEFINED Condition: Stable Referrals: Anson Rolon MD [REFERRING] - 1-2 days
[2025-01-02 15:36] LABS: Basophils # (A) 0.06 10*3/uL (0.00-0.10); Basophils % (A) 1.6 %; Eosinophils # (A) 0.05 10*3/uL (0.04-0.35); Eosinophils % (A) 1.3 %; HCT 39.2 % (39.6-50.0); HGB 13.4 g/dL (13.0-17.0); Lymphocytes # (A) 1.24 10*3/uL (0.90-5.00); MCH 30.8 pg (27.0-32.0); MCHC 34.2 g/dL (32.0-37.0); MCV 90.1 fL (80.0-97.0); Mean Platelet Volume 9.7 fL (9.5-12.2); Monocytes # (A) 0.15 10*3/uL (0.20-1.00); Monocytes % (A) 3.9 %; Neutrophils # (A) 2.36 10*3/uL (1.80-7.70); Neutrophils % (A) 60.9 %; Platelet Count 193 10*3/uL (140-440); RBC 4.35 10*6/uL (4.40-5.60); RDW 14.8 % (11.5-14.5); WBC 3.87 10*3/uL (4.50-10.00)
[2025-01-02] MEDS: SODIUM CHLORIDE 0.9% 1,000 ML IV STA (15:37)
[2025-01-02] MEDS: PANTOPRAZOLE 40 MG/10 ML VIAL IVP STA (15:38)
[2025-01-02] MEDS: FAMOTIDINE 20 MG/2 ML VIAL IV STA (15:39)
[2025-01-02] MEDS: ACETAMINOPHEN TAB 500 MG TAB PO STA (15:39)
[2025-01-02 15:57] LABS: ALT 17 U/L (4-49); AST 18 U/L (17-59); African American GFR (CKD) >90 (>60 ml/min/1.73 sqM); Albumin 3.6 g/dL (3.5-5.0); Alkaline Phosphatase 37 U/L (38-126); Anion Gap 12 mmol/L; Blood Urea Nitrogen 11 mg/dL (9-20); Calcium 9.6 mg/dL (8.4-10.2); Carbon Dioxide 17 mmol/L (22-30); Chloride 108 mmol/L (98-107); Glucose 105 mg/dL (74-99); Lipase 108 U/L (23-300); Non-African American GFR(CKD) 85 (>60 ml/min/1.73 sqM); Potassium 4.2 mmol/L (3.5-5.1); Sodium 137 mmol/L (137-145); Total Bilirubin 1.2 mg/dL (0.2-1.3); Total Protein 6.1 g/dL (6.3-8.2)
[2025-01-02 17:02] LABS: Influenza A Not Detected (Not Detectd); Influenza B Not Detected (Not Detectd); RSV Not Detected (Not Detectd)
--- NOTE | 2025-01-02 17:15 | CT ---
EXAMINATION TYPE: CT abdomen pelvis w con DATE OF EXAM: 01/02/2025 4:47 PM COMPARISON: None available. CLINICAL INDICATION: Male, 24 years old with history of Diffuse abdominal TTP/pain; Diffuse abdominal pain and tightness. N/V/D. Pale. TECHNIQUE: Axial CT abdomen pelvis w con;Sagittal and coronal reformats were created on a separate w orkstation. Contrast used:100 ml mL of Isovue 300 with IV Contrast, (none if empty) Oral contrast used: without Oral Contrast (none if empty) CT DLP: 1144.7 mGycm, Automated exposure control for dose reduction was used. FINDINGS: LOWER CHEST: Partially visualized cardiomegaly and trace bilateral pleural effusions. Subtle groundgl ass attenuation opacities in the inferior aspect of the right lower lobe which could reflect sequelae of either pulmonary edema or infectious etiology. Small to moderate volume pericardial effusion part ially visualized. ABDOMEN LIVER: Heterogeneous enhancement and mild to moderate periportal edema. Possible mild nodularity of t he external hepatic surface contour. Reflux of contrast into the IVC and hepatic veins is noted on in itial arterial phase, however, on delayed phase imaging the hepatic veins are not opacified (series 6 1 images 13-15). GALLBLADDER AND BILE DUCTS: Nonspecific abnormal thickening/edema without CT evidence of cholelithias is. PANCREAS: Unremarkable. SPLEEN: Unremarkable. ADRENAL GLANDS: Unremarkable. KIDNEYS AND URETERS: No evidence of hydronephrosis or renal calculus. The ureters are unremarkable. PELVIS BLADDER: No evidence for wall thickening or mass given limitations of exam. REPRODUCTIVE: Unremarkable. ABDOMEN & PELVIS STOMACH AND BOWEL: Stomach and duodenum are unremarkable. No evidence of bowel obstruction. PERITONEUM/RETROPERITONEUM: No evidence of pneumoperitoneum. Moderate volume diffuse abdominal ascite s. VASCULATURE: No evidence of aortic aneurysm. MUSCULOSKELETAL: No acute osseous abnormalities LYMPH NODES: No gross evidence for lymphadenopathy. SOFT TISSUE/ABDOMINAL WALL: Bilateral edema/anasarca. IMPRESSION: 1. Heterogeneous hepatic parenchymal enhancement, periportal edema and nonopacification of the hepat ic veins on delayed phase imaging. Additionally, there is moderate diffuse abdominal ascites. Constel lation of findings are suspicious for [place] Chiari syndrome in the appropriate clinical setting. Conges tive hepatopathy in the setting of heart failure would also be a possibility. 2. Cardiomegaly, small bilateral pleural effusions and diffuse body wall edema/anasarca suggesting f luid volume overload. 3. Small to moderate volume pericardial effusion partially visualized. [facility], , 01/02/2025 5:12 PM
[2025-01-02 17:56] LABS: Appearance,Urine Clear (Clear); Bilirubin,Urine Negative (Negative); Blood,Urine Negative (Negative); Color,Urine Yellow; Glucose,Urine (UA) Negative (Negative); Ketones,Urine Negative (Negative); Leukocyte Esterase,Urine Negative (Negative); Nitrite,Urine Negative (Negative); PH, Urine 5.5 (5.0-8.0); Protein,Urine Negative (Negative); Specific Gravity,Urine 1.022 (1.001-1.035); Urobilinogen,Urine <2.0 mg/dL (<2.0)
[2025-01-02] MEDS: KETOROLAC 15 MG/ML 1 ML VIAL IVP STA (18:16)
[2025-01-02] MEDS: HYDROmorphone 1 MG/ML 1 ML SYRINGE IVP STA (18:17)
--- NOTE | 2025-01-02 19:08 | XR ---
EXAMINATION TYPE: XR chest 2V DATE OF EXAM: 01/02/2025 6:40 PM COMPARISON: Previous chest radiograph, most recently dated 10/04/2024. CLINICAL INDICATION: Male, 24 years old with history of Pericardial effusion; [facility] TECHNIQUE: XR chest 2V Frontal and lateral views of the chest. FINDINGS: Lungs/Pleura: Small bilateral pleural effusions with adjacent lower lobe compressive atelectasis. No pneumothorax. Pulmonary vascularity: Mild pulmonary vascular congestion. Heart/mediastinum: Cardiomegaly. Musculoskeletal: No acute osseous pathology. Other findings: None IMPRESSION: Cardiomegaly, pulmonary vascular congestion and small bilateral pleural effusions. [facility], , 01/02/2025 7:05 PM
[2025-01-02 20:29] LABS: INR 1.3 (<1.2); Partial Thromboplastin Time 23.3 sec (22.0-30.0); Prothrombin Time 13.9 sec (10.0-12.5)
--- NOTE | 2025-01-02 21:12 | CT ---
EXAMINATION TYPE: CT chest angio for PE DATE OF EXAM: 01/02/2025 8:54 PM COMPARISON: Chest radiograph 01/02/2025. CLINICAL INDICATION: Male, 24 years old with history of cardiomegaly, budd chiari malformation on CT ab/pe; Cardiomegaly, budd chiari malformation found on prior CT today. TECHNIQUE/CONTRAST: CTA scan of the thorax is performed with IV Contrast, patient injected with 80 ml mL of Isovue 370, M IP images are created and reviewed these are created on a separate workstation.. CT DLP: 367 mGycm, Automated exposure control for dose reduction was used. FINDINGS: Pulmonary Artery: There is no evidence for a filling defect within the pulmonary vasculature to sugge st acute pulmonary embolism. The pulmonary artery is of normal size. Lungs/Pleura: No pneumothorax. Small right and trace left pleural effusions. Groundglass and small no dular opacities in the right lower lobe, possibly affecting infectious etiology Airway: Large airways are patent. Heart: Cardiomegaly and small to moderate volume pericardial effusion. Vasculature: No evidence of aortic aneurysm. Mediastinum: No gross evidence of adenopathy. Musculoskeletal: No acute osseous abnormalities Soft Tissues/lymph nodes: Unremarkable. Lower neck: No significant findings. IMPRESSION: 1. No evidence of acute pulmonary embolism. 2. Significant cardiomegaly and small to moderate volume pericardial effusion. Consider echocardiogr aphy for further evaluation as clinically warranted. 3. Small right and trace left pleural effusions with possible adjacent lower lobe compressive atelec tasis and/or developing infectious etiology. [facility], , 01/02/2025 9:10 PM
[2025-01-02 22:14] VITALS: BP 121/91; PULSE 91; RESP 18; TEMP 98.4
== END 2025-01-02 22:15 | disposition other institution (70) ==
LOC: EC 14:26
DX: I82.0 Budd-Chiari syndrome (principal); J90 Pleural effusion, not elsewhere classified; I31.39 Other pericardial effusion (noninflammatory); R18.8 Other ascites; R00.0 Tachycardia, unspecified
CPT/HCPCS: 36415; 93005; 85379; 83880; 80053; 83605; 83690; 84484; 85025; 85610; 85730; 81003; 87636; 71046; 71275; 74177; 99285; 96374; 96375; 96361; J1171; J1885; Q9967 ×2; J2470; J1308

== ENCOUNTER 2025-03-04 21:22 | Emergency (ER) | payer OTHER ==
[2025-03-04 21:27] VITALS: RESP 18
--- NOTE | 2025-03-04 22:07 | ED ---
Chest Pain HPI - General Chief Complaint: Chest Pain Stated Complaint: Chest pain Time Seen by Provider: 03/04/25 21:34 Source: patient Mode of arrival: ambulatory Limitations: no limitations - History of Present Illness Initial Comments: This patient is a 24-year-old man who presents to have evaluation of right sided chest pain. The patient indicates the right upper chest which is the irene- incisional area for one of his decisions related to LVAD device. The patient states that the pain is currently about a 2-3 out of 10 intensity. It is an aching, constant. Pain sometimes worse with movement. He has not noted relieving factors. Patient states that he took some Tylenol at home but was not feeling much better. In light of not having much improvement he called his LVAD team and he was instructed to be seen in the emergency. The patient relates that he developed heart failure early this year which worsened and ended up requiring LVAD placement in early November. This was performed in [place]. Patient states that he takes Coumadin daily related to the LVAD he is currently having weekly follow-ups with the last one being and he states that he was doing well. MD Complaint: chest pain -: hour(s) Onset: during rest Pain Location: right chest Pain Radiation: none Severity: mild Severity scale (1-10): 3 Quality: aching Consistency: constant Improves With: nothing Worsens With: movement Treatments Prior to Arrival: none - Related Data Home Medications Medication Instructions Recorded Confirmed Levothyroxine Sodium [Synthroid] 150 mcg PO [id number] 01/02/25 01/02/25 Allergies Allergy/AdvReac Type Severity Reaction Status Date / Time No Known Allergies Allergy Verified 03/04/25 21:27 Review of Systems ROS Statement: Those systems with pertinent positive or pertinent negative responses have been documented in the HPI. ROS Other: All systems not noted in ROS Statement are negative. Constitutional: Denies: fever, chills Respiratory: Denies: cough, dyspnea Cardiovascular: Reports: chest pain. Denies: palpitations, orthopnea, edema, syncope Gastrointestinal: Denies: abdominal pain, nausea, vomiting, diarrhea Genitourinary: Denies: dysuria, hematuria Musculoskeletal: Denies: back pain Skin: Denies: rash Neurological: Denies: headache, weakness, numbness EKG Findings - EKG Comments: EKG Findings:: Right ventricular hypertrophy. - EKG Results: EKG: interpreted by SAMINA, sinus rhythm EKG shows: tachycardia (Rate 110 bpm) Past Medical History Past Medical History: GERD/Reflux Additional Past Medical History / Comment(s): Absence Seizures. AORTIC BICUSPID VALVE History of Any Multi-Drug Resistant Organisms: None Reported Past Surgical History: No Surgical Hx Reported Additional Past Surgical History / Comment(s): EGD, LVAD Past Anesthesia/Blood Transfusion Reactions: No Reported Reaction Past Psychological History: No Psychological Hx Reported Smoking Status: Never smoker Past Alcohol Use History: None Reported Past Drug Use History: None Reported - Past Family History Mother Family Medical History: No Reported History Additional Family Medical History / Comment(s): cancer, decreased General Exam Limitations: no limitations General appearance: alert, in no apparent distress Head exam: Present: atraumatic, normocephalic Eye exam: Present: normal appearance. Absent: scleral icterus, conjunctival injection ENT exam: Present: normal oropharynx Neck exam: Present: normal inspection Respiratory exam: Present: normal lung sounds bilaterally, chest wall tenderness. Absent: respiratory distress, wheezes, rales, rhonchi, stridor, accessory muscle use Cardiovascular Exam: Present: tachycardia, systolic murmur, other. Absent: diastolic murmur, rubs, gallop GI/Abdominal exam: Present: soft. Absent: distended, tenderness, guarding, rebound, rigid, mass Extremities exam: Present: normal inspection, normal capillary refill. Absent: pedal edema, calf tenderness Back exam: Present: normal inspection. Absent: CVA tenderness (R), CVA tenderness (L) Neurological exam: Present: alert Skin exam: Present: warm, dry, intact, normal color. Absent: rash Course Vital Signs 03/04/25 03/04/25 03/05/25 21:24 23:56 02:17 Temperature 97.6 F 98.3 F Pulse Rate 128 H 112 H 108 H Respiratory 18 18 18 Rate Blood Pressure 93/54 87/65 94/48 O2 Sat by Pulse 100 99 98 Oximetry - Reevaluation(s) Reevaluation #1: 03/04/25 22:30 I did phone the [facility] transplant center at [phone] and left details of the case with Lolita who was the women's apparel salesperson. She was paging the case out for the physician covering for LVAD's. Reevaluation #2: 03/04/25 22:47 I received a call back from [facility] team, . We reviewed details of the case. I will review the call with the patient. Chest Pain MDM - MDM Patient is a 24-year-old man who presents with right-sided chest pain. He states he also has had some intermittent nausea/upper abdominal discomfort. He currently is not having any symptoms in the abdomen. Patient also has at times had shortness of breath if he walks. The case discussed with the patient's LVAD team. When the results had returned I discussed them with the patient. His CT scan was pending and was taking some time for the read. Patient stated that he was feeling better and he wanted to go home without waiting for the final results. I did discuss that his LVAD team had wanted to offer transfer to the facility in [place] to have further evaluation, but the patient is declining at this time. He states that he will definitely be in contact with the team by phone in the morning, and he does agree to return if the symptoms recur or new symptoms develop. Disposition Clinical Impression: Chest pain Disposition: HOME SELF-CARE Condition: Undetermined Instructions (If sedation given, give patient instructions): Chest Pain (ED) Is patient prescribed a controlled substance at d/c from ED?: No Referrals: Seth Rolon MD [Primary Care Provider] - 1-2 days
[2025-03-04 22:58] LABS: Basophils # (A) 0.05 10*3/uL (0.00-0.10); Basophils % (A) 0.7 %; Eosinophils # (A) 0.38 10*3/uL (0.04-0.35); Eosinophils % (A) 5.6 %; HGB 11.9 g/dL (13.0-17.0); Lymphocytes # (A) 1.79 10*3/uL (0.90-5.00); Lymphocytes % (A) 26.5 %; MCH 28.5 pg (27.0-32.0); MCHC 33.1 g/dL (32.0-37.0); MCV 86.1 fL (80.0-97.0); Mean Platelet Volume 8.3 fL (9.5-12.2); Monocytes # (A) 0.44 10*3/uL (0.20-1.00); Monocytes % (A) 6.5 %; Neutrophils # (A) 4.08 10*3/uL (1.80-7.70); Neutrophils % (A) 60.4 %; Platelet Count 322 10*3/uL (140-440); RBC 4.18 10*6/uL (4.40-5.60); RDW 16.7 % (11.5-14.5); WBC 6.76 10*3/uL (4.50-10.00)
[2025-03-04 23:13] LABS: ALT 27 U/L (4-49); AST 29 U/L (17-59); African American GFR (CKD) >90 (>60 ml/min/1.73 sqM); Albumin 4.6 g/dL (3.5-5.0); Alkaline Phosphatase 77 U/L (38-126); Amylase 56 U/L (30-110); Anion Gap 12 mmol/L; Blood Urea Nitrogen 24 mg/dL (9-20); Calcium 9.8 mg/dL (8.4-10.2); Carbon Dioxide 24 mmol/L (22-30); Chloride 103 mmol/L (98-107); Glucose 111 mg/dL (74-99); Lipase 111 U/L (23-300); Magnesium 1.7 mg/dL (1.6-2.3); Non-African American GFR(CKD) >90 (>60 ml/min/1.73 sqM); Potassium 4.1 mmol/L (3.5-5.1); Sodium 139 mmol/L (137-145); Total Bilirubin 0.7 mg/dL (0.2-1.3); Total Protein 7.8 g/dL (6.3-8.2)
[2025-03-04 23:38] LABS: INR 2.1 (<1.2); Partial Thromboplastin Time 32.8 sec (22.0-30.0); Prothrombin Time 21.3 sec (10.0-12.5)
[2025-03-05 00:09] LABS: Influenza A Not Detected (Not Detectd); Influenza B Not Detected (Not Detectd); RSV Not Detected (Not Detectd)
[2025-03-05 02:18] VITALS: BP 94/48; PULSE 108; TEMP 98.3
--- NOTE | 2025-03-05 03:51 | CT ---
EXAM: CT Angiography Chest, Abdomen and Pelvis Without and With Intravenous Contrast CLINICAL HISTORY: ITS.REASON CT Reason: R chest/RUQ pain, recent LVAD surgery TECHNIQUE: Axial computed tomographic angiography images of the chest, abdomen and pelvis without and with intravenous contrast. CTDI is 41 mGy and DLP is 627.5 mGy-cm. This CT exam was performed using one or more of the following dose reduction techniques: automated exposure control, adjustment of the mA and/or kV according to patient size, and/or use of iterative reconstruction technique. MIP reconstructed images were created and reviewed. COMPARISON: No relevant prior studies available. FINDINGS: VASCULATURE: Aorta: No evidence of aortic aneurysm or dissection along the aorta or subsequent branches. Pulmonary arteries: Unremarkable as visualized. No pulmonary embolism is identified. Great vessels of aortic arch: No acute findings. No dissection. No arterial occlusion or significant stenosis. Celiac trunk and mesenteric arteries: No acute findings. No occlusion or significant stenosis. Renal arteries: No acute findings. No occlusion or significant stenosis. Iliac arteries: No acute findings. No occlusion or significant stenosis. CHEST: Lungs: Near complete left lower lobe collapse which may be due to compressive atelectasis. Superimposed infection also possible. No mass. Pleural space: Moderate left pleural effusion. Findings are favored to relate to sequela of volume overload. No pneumothorax. Heart: Cardiomegaly. No significant pericardial effusion. ABDOMEN: Liver: Unremarkable. No mass. Gallbladder and bile ducts: Unremarkable. No calcified stones. No ductal dilation. Pancreas: Unremarkable. No ductal dilation. No mass. Spleen: Unremarkable. No splenomegaly. Adrenals: Unremarkable. No mass. Kidneys and ureters: Unremarkable. No obstructing stones. No hydronephrosis. No solid mass. Stomach and bowel: No evidence of bowel obstruction. No mucosal thickening. PELVIS: Appendix: Normal appendix. Bladder: Unremarkable. No stones. No mass. Reproductive: Unremarkable as visualized. CHEST, ABDOMEN and PELVIS: Intraperitoneal space: Unremarkable. No significant fluid collection. No free air. Bones/joints: No acute fracture. No dislocation. Soft tissues: Unremarkable. Lymph nodes: Unremarkable. No enlarged lymph nodes. Tubes, lines and devices: Patient is status post LVAD placement. Minimal hypodensity noted within the drive line which may relate to intraluminal hyperplasia versus thrombus. IMPRESSION: 1. Patient is status post LVAD placement. Minimal hypodensity noted within the drive line which may relate to intraluminal hyperplasia versus thrombus. 2. Cardiomegaly. 3. Near complete left lower lobe collapse which may be due to compressive atelectasis. Superimposed infection also possible. 4. Moderate left pleural effusion. Findings are favored to relate to sequela of volume overload. 5. No evidence of aortic aneurysm or dissection along the aorta or subsequent branches. 6. No other acute findings. 7. Incidental findings as described.
--- NOTE | 2025-03-05 04:51 | XR ---
EXAM: XR Chest, 1 View CLINICAL HISTORY: Chest Pain TECHNIQUE: Frontal view of the chest. COMPARISON: Chest radiograph 01/02/2025 FINDINGS: Lungs: Unremarkable. No consolidation. Pleural space: Small left pleural effusion. No pneumothorax. Heart: Cardiomegaly with an LVAD. Mediastinum: Unremarkable. Normal mediastinal contour. Bones/joints: No acute fracture. IMPRESSION: Cardiomegaly with an LVAD.
== END 2025-03-05 02:18 | disposition home or self-care (01) ==
LOC: EC 21:22
DX: R07.89 Other chest pain (principal); I42.2 Other hypertrophic cardiomyopathy
CPT/HCPCS: 36415; 71045; 71275; 74174; 80053; 82150; 83690; 83735; 84484; 85025; 85610; 85730; 87040; 87636; 93005; 99285